=== PATIENT | female | born 1975 | race Caucasian/White ===

== ENCOUNTER → 2022-01-06 12:38 | Outpatient (BNVA) | payer MEDICARE, SELFPAY | PROVIDERS: PCP Emergency Medicine; Visit Provider Specialist | DX: G43.711 Chronic migraine without aura, intractable, with status migrainosus (principal); I73.00 Raynaud's syndrome without gangrene; Q61.5 Medullary cystic kidney | CPT/HCPCS: 99204 ==

== ENCOUNTER → 2022-03-10 14:03 | Outpatient (BNVA) | payer MEDICARE, SELFPAY | PROVIDERS: PCP Emergency Medicine; Visit Provider Specialist | DX: G43.711 Chronic migraine without aura, intractable, with status migrainosus (principal); Z71.89 Other specified counseling | CPT/HCPCS: 64615; J0585 ==